=== PATIENT | male | born 1960 | race Caucasian/White ===

== ENCOUNTER 2021-05-18 09:26 | Outpatient (CLI) | payer OTHER, SELFPAY ==
--- NOTE | 2021-05-18 | ECHO_ITS ---
Patient Info Name: Olvin Kern Age: 60 years : 1960 Gender: Male Ht: 69 in Wt: 300 lbs BSA: 2.64 m2 HR: 68 bpm BP: 163 / 92 mmHg Heart Rhythm: Sinus Rhythm Exam Date: 05/18/2021 9:54 AM Exam Location: [facility] Patient Status: Outpatient Admit Date: 05/18/2021 Staff Ordering Physician: Elvira, Amanda PENDLETON Photography Intern: Meghan Emery RDCS Attending Provider: Elvira, Amanda PENDLETON Referring Physician: Elvira BRITO; Exam Type: CA echo doppler color flow Study Info Indications I50.9 - Heart failure, unspecified Complete two-dimensional, color flow and Doppler transthoracic echocardiogram is performed. Summary 1. Complete two-dimensional, color flow and Doppler transthoracic echocardiogram is performed. 2. Left ventricular chamber size, wall thickness, systolic and diastolic function are normal with no regional wall motion abnormalities with an estimated ejection fraction of 60-65%. 3. The right ventricle is not well visualized. Right ventricular chamber dimension is mildly enlarged. Visually there appears to be mild right ventricular dysfunction although the tricuspid annular velocity S' is in the normal range (suggesting normal RV function). 4. Left atrial chamber dimension is mildly enlarged. 5. No significant valve disease. 6. Normal sinus rhythm. 7. Technically difficult study. Left Ventricle Left ventricular chamber dimension is normal. Left ventricular systolic function is normal, estimated at 60-65%. There is no increased left ventricular wall thickness. Left ventricular septal wall motion is normal. The left ventricular diastolic function is normal. Left ventricular chamber size, wall thickness, systolic and diastolic function are normal with no regional wall motion abnormalities with an estimated ejection fraction of 60-65%. Right Ventricle The right ventricle is not well visualized. Right ventricular chamber dimension is mildly enlarged. Visually there appears to be mild right ventricular dysfunction although the tricuspid annular velocity S' is in the normal range (suggesting normal RV function). Right ventricular systolic function is reduced. Left Atria Left atrial chamber dimension is mildly enlarged. Right Atria Right atrial chamber dimension is normal. Aortic Valve The aortic valve is trileaflet. There is no aortic valve sclerosis. There is no aortic valve stenosis. There is no aortic valve regurgitation. Pulmonic Valve The pulmonic valve is normal. There is no pulmonic valve stenosis. There is no pulmonic regurgitation. Mitral Valve The mitral valve has normal leaflets. There is no mitral valve stenosis. There is no mitral valve regurgitation. Tricuspid Valve The tricuspid valve leaflets are normal. There is no significant tricuspid valve stenosis. There is no tricuspid valve regurgitation. No pulmonary hypertension, estimated pulmonary arterial systolic pressure is Empty. Pericardium/Pleural The pericardium appears normal. There is no pericardial effusion. Inferior Vena Cava Normal inferior vena cava with >50% collapse upon inspiration consistent with Empty right atrial pressure, Empty. Aorta The aortic root size at the sinus of Valsalva is normal. The prox ascending aorta size is normal. Left Ventricular Outflow Tract Name Value Normal
== END 2021-05-18 09:27 | disposition home or self-care (01) ==
PROVIDERS: PCP Physician Assistant; Visit Provider Physician Assistant
DX: I50.810 Right heart failure, unspecified (principal)
CPT/HCPCS: 93306